=== PATIENT | male | born 1985 | race Caucasian/White ===

== ENCOUNTER 2019-04-10 09:52 | Emergency (ER) | payer OTHER ==
[~2019-04-10] VITALS: Ht 177.8 cm; Wt 99.8 kg
--- NOTE | 2019-04-10 09:52 | NUR ---
Patient BIBA BLS, transferred to bed 9. RN evaluating patient at bedside.
[2019-04-10 09:53] VITALS: BP 159/130
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
--- NOTE | 2019-04-10 10:12 | NUR ---
Dr. Curtis evaluating patient at bedside.
[2019-04-10 11:40] VITALS: BP 134/84
--- NOTE | 2019-04-10 11:40 | NUR ---
Patient discharged with v/s stable. Written and verbal after care instructions given and explained. Patient verbalized understanding. Ambulatory with steady gait. All questions addressed prior to discharge. Advised to follow up with PMD.
== END 2019-04-10 11:42 | disposition home or self-care (01) ==
LOC: MED 09:52
DX: S70.12XA Contusion of left thigh, initial encounter (principal); F17.210 Nicotine dependence, cigarettes, uncomplicated; Z98.890 Other specified postprocedural states; Z71.6 Tobacco abuse counseling; V57.5XXA Driver of pick-up truck or van injured in collision with fixed or stationary object in traffic accident, initial encounter; Y93.89 Activity, other specified; Y92.89 Other specified places as the place of occurrence of the external cause; Y99.8 Other external cause status
CPT/HCPCS: 36415; 90471; 90715; 99283; G0482